=== PATIENT | female | born 1965 | race Caucasian/White ===

== ENCOUNTER 2016-07-01 17:38 | Emergency (ER) | payer OTHER ==
--- NOTE | 2016-07-04 12:36 | ER ---
ADMIT: 07/01/2016 RM/LOC: ER [facility] MR#: [id number] [address] [facility] [address] [place] [id number] [address] [place] [place] [address] Emergency Room Report SEX: F AGE: 50 : 1965 DATE: 07/01/2016 CHIEF COMPLAINT: Injury to left hip. HISTORY OF PRESENT ILLNESS: This is a pleasant 50-year-old female, who presents with her for evaluation following an injury at work. The patient states prior to arrival, she was at work. When she went to take a step backwards felt a pop in her left hip and then had immediate pain about her left hip. She states she has difficulty with ambulation and has not been able to bear weight on her left leg. The patient describes her pain location is her left groin as well as the lateral aspect of her hip. She rates it as an 8/10 with any movement. Denies any numbness or tingling into the distal extremity. PAST MEDICAL HISTORY: Significant for breast cancer with metastatic disease in the pelvis. COURSE IN THE EMERGENCY ROOM: The patient was seen and examined, significant for some tenderness to palpation over the left groin region extending medially into the groin. She also has some tenderness to palpation over the lateral hip. She has pain with log roll to the left leg. Pelvis is otherwise stable, neurovascularly intact. I did proceed with x-ray of left hip and pelvis, reviewed by Dr. Wilson, initially recommended further investigation with CT due to the severe metastatic changes. CT was ordered of the left hip and pelvis, read by the radiologist as negative for any acute fracture or dislocation. He did see significant metastatic lytic changes about the acetabulum, pubic symphysis, and left sacroiliac joint. I was able to get the patient up and ambulate in the room with a wheeled walker and assistance with mild discomfort. She was given 15 mg of Toradol IM. IMPRESSION: 1. Left hip strain. 2. Metastatic degenerative changes of the left hip. ADMIT: 07/01/2016 RM/LOC: [facility] MR#: [id number] [facility] [address] [place] [id number] [address] [place] [address] Emergency Room Report SEX: F AGE: 50 : 1965 DISPOSITION: I did discuss the findings, radiology with the patient and her today, told them there was no obvious fracture on exam today. They are to use the wheeled walker at home as needed until her pain subsides. She should use assistance when ambulating. She was provided with a script for Flexeril 5 mg p.o. t.i.d. p.r.n. muscle spasms #15. She was cautioned to use these only as needed, to use them when she would not be driving, operating machinery, or making important decisions. She is to apply ice or heat to her preference as needed for pain. She will continue to use ibuprofen and Tylenol as needed for pain as well. She is to follow up with Dr. Mandujano if her pain is not improving or with any other concerns. Questions were sought and answered to the patient and her 's satisfaction. She was discharged from the department in stable condition. ROBI Alcaraz / Errol Ruiz MD / lucie JOB #: [id number] CC: Taurus Wilson MD, Attending Physician Randy Mandujano MD, Family Physician
== END 2016-07-01 20:35 | disposition home or self-care (01) ==
LOC: ER 17:38
DX: S76.012A Strain of muscle, fascia and tendon of left hip, initial encounter (principal); M16.12 Unilateral primary osteoarthritis, left hip; Z85.3 Personal history of malignant neoplasm of breast; Z88.5 Allergy status to narcotic agent; Z90.710 Acquired absence of both cervix and uterus